=== PATIENT | female | born 1980 | race African-American/Black ===

== ENCOUNTER 2023-07-20 13:37 | Outpatient (CLI) | payer BC | END 2023-07-20 13:38 | disposition home or self-care (01) | LOC: DTY/OP 13:37 | PROVIDERS: ATTEND Surgery | DX: E66.01 Morbid (severe) obesity due to excess calories (principal) | CPT/HCPCS: 97802 ==

== ENCOUNTER 2023-09-06 12:22 | Outpatient (CLI) | payer BC ==
[2023-09-06 13:32] LABS: #Neutrophils 5.3 10x3/uL (1.5-8.4); %Basophils 0.5 % (0.0-2.0); %Eosinophils 0.2 % (0.0-6.0); %Lymphocytes 24.4 % (18.0-47.0); %Monocytes 11.6 % (0.0-10.0); %Neutrophils 63.1 % (40.0-75.0); Hematocrit 37.8 % (34.9-44.5); Hemoglobin 12.2 g/dL (12.0-15.5); Mean Corpuscular HGB CONC 32.3 g/dL (32.0-36.0); Mean Corpuscular Hemoglobin 29.6 pg (27.0-33.0); Mean Corpuscular Volume 91.7 fl (81.6-98.3); Mean Platelet Volume 10.2 fl (7.4-10.4); Platelet Count 367 10x3/uL (150-450); RBC Distribution Width 12.8 % (11.5-14.5); Red Blood Cell (RBC) Count 4.12 10x6/uL (3.90-5.03); White Blood Cell (WBC) Count 8.5 10x3/uL (3.5-10.5)
[2023-09-06 13:50] LABS: ALT (SGPT) 12 U/L (8-55); AST (SGOT) 14 U/L (5-34); Albumin 4.1 g/dL (3.5-5.0); Alkaline Phosphatase 80 U/L (40-110); Anion Gap 13 mmol/L (10-20); BUN (Urea Nitrogen) 11 mg/dL (7.0-18.7); Bilirubin, Total 0.3 mg/dL (0.2-1.2); Calc. Creatinine Clearance 0 mL/min (70-130); Carbon Dioxide 21 mmol/L (22-29); Chloride 107 mmol/L (98-107); Estimated GFR 105; Glucose 102 mg/dL (70-105); Potassium 4.4 mmol/L (3.5-5.1); Protein, Total 7.1 g/dL (6.0-8.3); Sodium 137 mmol/L (136-145)
[2023-09-06 17:24] LABS: Hemoglobin A1c 5.3 % (4.0-6.0)
== END 2023-09-06 12:23 | disposition home or self-care (01) ==
LOC: LABBT 12:22
PROVIDERS: ATTEND Surgery
DX: Z01.818 Encounter for other preprocedural examination (principal); E66.01 Morbid (severe) obesity due to excess calories
CPT/HCPCS: 80053; 83036; 85025; 93005; 93010

== ENCOUNTER 2023-09-20 05:48 | Inpatient (IN) | payer BC ==
[2023-09-20] MEDS ORDERED: Bupivacaine 0.25% HCL 30 ML VIAL ONE (06:47)
[2023-09-20] MEDS ORDERED: EPINEPHrine 1 MG/ML VIAL ONE (06:47)
[2023-09-20] MEDS ORDERED: PROPOFOL 20 ML ONE (07:03)
[2023-09-20] MEDS ORDERED: Ketamine In 0.9 % NaCl 50 MG/5 ML SYRINGE ONE (07:03)
[2023-09-20] MEDS ORDERED: fentaNYL 50 mcg/mL 1 mL Vial ONE ×2 (07:03→08:29)
[2023-09-20] MEDS ORDERED: Rocuronium Bromide 10 MG/ML (10ML VIAL) ONE (07:04)
[2023-09-20] MEDS ORDERED: Lidocaine 1% PF 5 ML VIAL ONE (07:04)
[2023-09-20] MEDS ORDERED: Heparin 5,000 UNITS/ML VIAL ONE (07:07)
[2023-09-20] MEDS ORDERED: Propofol 500 MG/50 ML VIAL ONE (07:08)
[2023-09-20] MEDS ORDERED: CEFAZOLIN 2 GM VIAL ONE (07:25)
[2023-09-20] MEDS ORDERED: Midazolam HCl 2 mg/2 ml Vial ONE (07:25)
[2023-09-20] MEDS ORDERED: Sodium Chloride 0.9% 100 ML ONE (07:25)
[2023-09-20] MEDS ORDERED: Dexamethasone 20 MG/5 ML VIAL ONE (07:46)
[2023-09-20] MEDS ORDERED: Esmolol 100 MG/10 ML VIAL ONE (07:48)
[2023-09-20] MEDS ORDERED: ePHEDrine Sulfate 50 MG/10 ML VIAL ONE (07:55)
[2023-09-20] MEDS ORDERED: PHENYLEPHRINE-NS 100 MCG/ML 10 ML SYRINGE ONE (08:00)
[2023-09-20] MEDS ORDERED: diphenhydrAMINE 50 MG/ML VIAL IM PRN (08:22)
[2023-09-20] MEDS ORDERED: Ondansetron HCl/PF 4 MG/2 ML Vial IVP PRN (08:22)
[2023-09-20] MEDS ORDERED: Naloxone HCl 0.4 mg/ml Vial IV PRN (08:22)
[2023-09-20] MEDS ORDERED: FENTANYL 500 MCG/10 ML VIAL 2,000 MCG in Sodium Chloride 0.9% 60 ML IV PRN (08:22)
[2023-09-20] MEDS ORDERED: diphenhydrAMINE 50 MG/ML VIAL IVP PRN ×2 (08:22→09:49)
[2023-09-20] MEDS ORDERED: Promethazine HCl 25 MG/ML VIAL IM PRN ×3 (08:22→09:49)
[2023-09-20] MEDS ORDERED: diphenhydrAMINE 25 MG CAP PO PRN (08:22)
[2023-09-20] MEDS ORDERED: Ondansetron PF 4 MG/2 ML Vial ONE ×2 (08:22→09:01)
[2023-09-20] MEDS ORDERED: Ketorolac Tromethamine 30 MG (1 mL) VIAL ONE (08:22)
[2023-09-20] MEDS ORDERED: SUGAMMADEX SODIUM 200 MG/2 ML VIAL ONE ×2 (08:23→08:29)
[2023-09-20] MEDS ORDERED: ACTIVE PCA FS PRN (08:30)
[2023-09-20] MEDS ORDERED: Labetalol HCl 100 MG/20 ML VIAL ONE (09:19)
[2023-09-20] MEDS ORDERED: Dextrose 5% in Water 1,000 ML IV PRN (09:49)
[2023-09-20] MEDS ORDERED: Ondansetron PF 4 MG/2 ML Vial IVP PRN (09:49)
[2023-09-20] MEDS ORDERED: Dextrose 50% Abboject 50 ML SYRINGE SLOW IVP PRN (09:49)
[2023-09-20] MEDS ORDERED: Glucagon 1 MG/ML KIT IM PRN (09:49)
[2023-09-20] MEDS ORDERED: Ipratropium/Albuterol 3 ML NEB NEB PRN (09:49)
[2023-09-20] MEDS ORDERED: hydrALAZINE 20 MG/ML VIAL SLOW IVP PRN (09:49)
[2023-09-20] MEDS: Amlodipine 5 MG TAB PO SCH (11:46)
[2023-09-20] MEDS: Losartan 25 MG TAB PO SCH (11:46)
[2023-09-20] MEDS: Enoxaparin 40 MG (0.4 mL) SYRINGE SC SCH (11:46)
[2023-09-20] MEDS: Pantoprazole 40 MG VIAL IVP SCH (12:00)
[2023-09-20] MEDS: D5 1/2 NS w/20 mEq KCL 1,000 ML IV SCH (12:00)
[2023-09-20] MEDS: Ondansetron PF 4 MG/2 ML Vial IVP PRN (12:00)
[2023-09-20 12:46] VITALS: BMI 41.9
[2023-09-21 05:45] LABS: #Basophils Less than 0.03 10x3/uL (0.0-0.2); #Eosinphils Less than 0.03 10x3/uL (0.0-0.7); %Basophils 0.1 % (0.0-1.0); %Lymphocytes 10.9 % (21.0-51.0); %Monocytes 13.4 % (0.0-10.0); %Neutrophils 75.2 % (42.0-75.0); Hematocrit 35.8 % (36.0-47.0); Hemoglobin 11.4 g/dL (12.0-16.0); Mean Corpuscular HGB CONC 31.8 g/dL (32.0-36.0); Mean Corpuscular Hemoglobin 30.1 pg (27.0-31.0); Mean Corpuscular Volume 94.5 fL (78.0-98.0); Mean Platelet Volume 10.7 fL (7.4-10.4); Platelet Count 331 10x3/uL (130-400); RBC Distribution Width 12.8 % (11.5-14.5); Red Blood Cell (RBC) Count 3.79 mill/uL (4.20-5.40)
[2023-09-21 06:00] LABS: Anion Gap 13 mmol/L (10-20); BUN (Urea Nitrogen) 4 mg/dL (7.0-18.7); Calc. Creatinine Clearance 149 mL/min (70-130); Calcium 8.8 mg/dL (7.8-10.44); Carbon Dioxide 24 mmol/L (22-29); Chloride 104 mmol/L (98-107); Estimated GFR 97; Glucose 157 mg/dL (70-105); Potassium 4.3 mmol/L (3.5-5.1); Sodium 137 mmol/L (136-145)
[2023-09-21] MEDS: Enoxaparin 40 MG (0.4 mL) SYRINGE SC SCH (10:27)
[2023-09-21] MEDS: Losartan 25 MG TAB PO SCH (10:27)
[2023-09-21] MEDS: Pantoprazole 40 MG VIAL IVP SCH (10:27)
[2023-09-21] MEDS: Amlodipine 5 MG TAB PO SCH (10:27)
[2023-09-21] MEDS: Hydrocodone-Acetamin 15 ML UDCUP PO PRN (10:39)
[2023-09-21 12:40] VITALS: BP 122/55; TEMP 98.3
== END 2023-09-21 15:42 | disposition home or self-care (01) | DRG 621 ==
LOC: SDC 05:48 → SURG A 10:38
PROVIDERS: ADMIT Surgery; ATTEND Surgery
PROC: 0DB64Z3 Excision of Stomach, Percutaneous Endoscopic Approach, Vertical (ICD-10-PCS; principal; 2023-09-20)
PROC: 8E0W4CZ Robotic Assisted Procedure of Trunk Region, Percutaneous Endoscopic Approach (ICD-10-PCS; 2023-09-20)
PROC: 3E033XZ Introduction of Vasopressor into Peripheral Vein, Percutaneous Approach (ICD-10-PCS; 2023-09-20)
DX: E66.01 Morbid (severe) obesity due to excess calories (principal); I10 Essential (primary) hypertension; Z79.899 Other long term (current) drug therapy; Z98.890 Other specified postprocedural states; Z82.49 Family history of ischemic heart disease and other diseases of the circulatory system; Z88.8 Allergy status to other drugs, medicaments and biological substances; Z68.41 Body mass index [BMI] 40.0-44.9, adult
CPT/HCPCS: 36415; 80048; 85025; 88307; C9113; J0171; J0665; J1100; J1644; J1650; J1885; J2250; J2405; J2704; J3010; J3480; J3490